=== PATIENT | female | born 1950 | race Caucasian/White ===

== ENCOUNTER 2019-03-05 15:29 | Emergency (ER) | payer MEDICARE, OTHER ==
[2019-03-05] MEDS ORDERED: ONDANSETRON HCL INJ/PF 4 MG/2 ML SDV IV ONE (15:52)
--- NOTE | 2019-03-05 15:59 | ER Document Report ---
ED Medical Screen (RME) - General Chief Complaint: Fall Stated Complaint: FALL Time Seen by Provider: 03/05/19 15:50 Notes: 68 y/o female attempted to flip matress today. Fell back and hit back of head on bathroom tile. Patient has had nausea and vomiting since the incident. She was able to get off the floor with help. States she has pain to the back of her head, and the front of her head feels "off." Exam: Patient vomiting. I have greeted and performed a rapid initial assessment of this patient. A comprehensive ED assessment and evaluation of the patient, analysis of test results and completion of medical decision making process will be conducted by an additional ED providers. Physical Exam - Vital signs Vitals: Temp Pulse Resp BP Pulse Ox 97.9 F 84 28 H 137/81 H 98 03/05/19 15:38 03/05/19 15:38 03/05/19 15:38 03/05/19 15:38 03/05/19 15:38 Course - Vital Signs Vital signs: Temp Pulse Resp BP Pulse Ox 97.9 F 84 28 H 137/81 H 98 03/05/19 15:38 03/05/19 15:38 03/05/19 15:38 03/05/19 15:38 03/05/19 15:38
--- NOTE | 2019-03-05 16:08 | ER Document Report ---
ED Fall - General Chief Complaint: Fall Stated Complaint: FALL Time Seen by Provider: 03/05/19 15:50 Primary Care Provider: TOMMY DE PAZ MD [Primary Care Provider] - Follow up as needed Mode of Arrival: Medic Information source: Patient - HPI Patient complains to provider of: fall Occurred: Just prior to arrival - pt fell backwards while trying to flip a mattress -- hit the back of her head and neck. Takes ASA qd. Denies LOC. Having some WEIR and neck pain - Related data Allergies/Adverse Reactions: ciprofloxacin [From Cipro] Allergy (Verified 03/05/19 16:06) Past Medical History - General Information source: Patient, Relative - Social History Smoking Status: Unknown if Ever Smoked Family History: None Review of Systems - Review of Systems Constitutional: No symptoms reported EENT: No symptoms reported Cardiovascular: No symptoms reported Respiratory: No symptoms reported Gastrointestinal: No symptoms reported Musculoskeletal: No symptoms reported Neurological/Psychological: No symptoms reported -: Yes All other systems reviewed and negative Physical Exam - Vital signs Vitals: Temp Pulse Resp BP Pulse Ox 97.9 F 84 28 H 137/81 H 98 03/05/19 15:38 03/05/19 15:38 03/05/19 15:38 03/05/19 15:38 03/05/19 15:38 - General General appearance: Appears well In distress: None - HEENT Head: Normocephalic. No: Abrasions, Ecchymosis, Open wounds Pupils: PERRL Mouth/Lips: Normal Mucous membranes: Normal Pharynx: Normal Neck: Other - min TTP posterior aspect diffusely - Respiratory Respiratory status: No respiratory distress Breath sounds: Normal - Cardiovascular Rhythm: Regular Heart sounds: Normal auscultation Murmur: No - Abdominal Inspection: Normal Bowel sounds: Normal Tenderness: Nontender - Extremities General upper extremity: Normal inspection General lower extremity: Normal inspection - Neurological Neuro grossly intact: Yes Cognition: Normal Orientation: AAOx4 Motor strength normal: LUE, RUE, LLE, RLE Sensory: Normal Course - Re-evaluation Re-evalutation: 03/05/19 17:10 Pt. feels better at end of w/u -- son has requested she receive some IVF prior to d/c. She will be accomodated. - Vital Signs Vital signs: Temp Pulse Resp BP Pulse Ox 97.9 F 84 17 133/73 H 100 03/05/19 15:38 03/05/19 15:38 03/05/19 16:41 03/05/19 16:07 03/05/19 16:41 - Diagnostic Test Radiology reviewed: Reports reviewed - ct head, c-spine without acute abnormality Discharge - Discharge Clinical Impression: Fall Qualifiers: Encounter type: initial encounter Qualified Code(s): W19.XXXA - Unspecified fall, initial encounter Head trauma Qualifiers: Encounter type: initial encounter Qualified Code(s): S09.90XA - Unspecified injury of head, initial encounter Condition: Stable Disposition: HOME, SELF-CARE Additional Instructions: rest, continue current meds, return if worse Referrals: TOMMY DE PAZ MD [Primary Care Provider] - Follow up as needed
--- NOTE | 2019-03-05 17:01 | RADIOLOGY REPORT (SQ) ---
EXAM DESCRIPTION: CT HEAD WITHOUT COMPLETED DATE/TIME: 03/05/2019 4:49 pm REASON FOR STUDY: fall COMPARISON: None. TECHNIQUE: Axial images acquired through the brain without intravenous contrast. Images reviewed wi th bone, brain and subdural windows. Additional sagittal and coronal reconstructions were generated. Images stored on PACS. All CT scanners at this facility use dose modulation, iterative reconstruction, and/or weight based d osing when appropriate to reduce radiation dose to as low as reasonably achievable (ALARA). [facility]: Dose Right [facility]: CareDose [facility]: Dose Right [facility]: Teradose 4D [facility]: [employer] RADIATION DOSE: CT Rad equipment meets quality standard of care and radiation dose reduction techniq ues were employed. CTDIvol: 53.2 mGy. DLP: 937 mGy-cm. mGy. LIMITATIONS: None. FINDINGS: VENTRICLES: Normal size and contour. CEREBRUM: No masses. No hemorrhage. No midline shift. No evidence for acute infarction. Normal gra y/white matter differentiation. No areas of low density in the white matter. CEREBELLUM: No masses. No hemorrhage. No alteration of density. No evidence for acute infarction. EXTRAAXIAL SPACES: No fluid collections. No masses. ORBITS AND GLOBE: No intra- or extraconal masses. Normal contour of globe without masses. CALVARIUM: No fracture. PARANASAL SINUSES: No fluid or mucosal thickening. SOFT TISSUES: No mass or hematoma. OTHER: No other significant finding. IMPRESSION: NORMAL BRAIN CT WITHOUT CONTRAST. EVIDENCE OF ACUTE STROKE: NO. COMMENT: Quality ID # [id number]: Final reports with documentation of one or more dose reduction techniques (e.g., Automated exposure control, adjustment of the mA and/or kV according to patient size, use of iterative reconstruction technique) TECHNICAL DOCUMENTATION: JOB ID: [id number] [employer]- All Rights Reserved Reading location - IP/workstation name: [email or web address]
--- NOTE | 2019-03-05 17:04 | RADIOLOGY REPORT (SQ) ---
EXAM DESCRIPTION: CT CERVICAL SPINE WITHOUT COMPLETED DATE/TIME: 03/05/2019 4:49 pm REASON FOR STUDY: trauma- fall COMPARISON: None. TECHNIQUE: Axial images acquired through the cervical spine without intravenous contrast. Images re viewed with lung, soft tissue and bone windows. Reconstructed coronal and sagittal MPR images review ed. Images stored on PACS. All CT scanners at this facility use dose modulation, iterative reconstruction, and/or weight based d osing when appropriate to reduce radiation dose to as low as reasonably achievable (ALARA). [facility]: Dose Right [facility]: CareDose [facility]: Dose Right [facility]: Teradose 4D [facility]: [employer] RADIATION DOSE: CT Rad equipment meets quality standard of care and radiation dose reduction techniq ues were employed. CTDIvol: 19.4 mGy. DLP: 392 mGy-cm. mGy. LIMITATIONS: None. FINDINGS: ALIGNMENT: Anatomic. MINERALIZATION: Normal. VERTEBRAL BODIES: No fractures or dislocation. DISCS: Multilevel disc space narrowing with osteophytes. FACETS, LATERAL MASSES, POSTERIOR ELEMENTS: Facet arthropathy. No fractures. No dislocation. No ac igiugig findings. HARDWARE: None in the spine. VISUALIZED RIBS: No fractures. LUNG APICES AND SOFT TISSUES: No significant or acute findings. OTHER: No other significant finding. IMPRESSION: CHRONIC DEGENERATIVE CHANGES. NO ACUTE FINDINGS. TECHNICAL DOCUMENTATION: JOB ID: [id number] Quality ID # [id number]: Final reports with documentation of one or more dose reduction techniques (e.g., Au tomated exposure control, adjustment of the mA and/or kV according to patient size, use of iterative reconstruction technique) 2010 [employer]- All Rights Reserved Reading location - IP/workstation name: [email or web address]
[2019-03-05] MEDS ORDERED: NORMAL SALINE 1000 ML 1,000 ML IV ONE (17:09)
[2019-03-05 18:43] VITALS: BP 128/67
== END 2019-03-05 18:40 | disposition home or self-care (01) ==
LOC: ER 15:29
DX: S09.90XA Unspecified injury of head, initial encounter (principal); M54.2 Cervicalgia; W19.XXXA Unspecified fall, initial encounter
CPT/HCPCS: 99284; 96361; 96374; 70450; 72125; J2405; J7030